=== PATIENT | female | born 1955 | race Caucasian/White ===

== ENCOUNTER → 2017-06-09 12:30 | Outpatient (CLI) | payer BC ==
[2013-03-12 09:59] VITALS: BMI 21.9
== END | disposition home or self-care (01) ==
LOC: D.CT 12:30
DX: R10.9 Unspecified abdominal pain (principal)

== ENCOUNTER → 2018-01-02 15:59 | Outpatient (CLI) | payer BC ==
[2013-03-12 09:59] VITALS: BMI 21.9
== END | disposition home or self-care (01) ==
LOC: D.MAMMO 10-10 11:45
DX: Z12.31 Encounter for screening mammogram for malignant neoplasm of breast (principal)

== ENCOUNTER → 2019-01-03 08:00 | Outpatient (CLI) | payer BC ==
[2013-03-12 09:59] VITALS: BMI 21.9
== END | disposition home or self-care (01) ==
LOC: D.MAMMO 10-16 11:45
PROVIDERS: ATTEND Family Medicine
DX: Z12.31 Encounter for screening mammogram for malignant neoplasm of breast (principal)

== ENCOUNTER 2020-01-14 08:00 | Outpatient (CLI) | payer MEDICARE, BC ==
[2013-03-12 09:59] VITALS: BMI 21.9
== END 2020-01-14 23:59 | disposition home or self-care (01) ==
LOC: D.MAMMO 08:00
PROVIDERS: ATTEND Family Medicine
DX: Z12.31 Encounter for screening mammogram for malignant neoplasm of breast (principal)

== ENCOUNTER 2021-02-16 14:15 | Outpatient (CLI) | payer MEDICARE, BC ==
[2013-03-12 09:59] VITALS: BMI 21.9
== END 2021-02-16 15:15 | disposition home or self-care (01) ==
LOC: D.MAMMO 14:15
PROVIDERS: ATTEND Family Medicine
DX: Z12.31 Encounter for screening mammogram for malignant neoplasm of breast (principal)